=== PATIENT | female | born 1995 | race Two or more races ===

== ENCOUNTER 2025-03-22 00:12 | Emergency (ER) | payer MEDICAID, SELFPAY ==
[2025-03-22 00:14] VITALS: BMI 35.4
[2025-03-22 00:30] VITALS: BP 156/97; PULSE 86; RESP 20; TEMP 36.7; O2SAT 100
[2025-03-22 03:58] LABS: Collection Type, Urine Clean Catch
[2025-03-22 04:05] LABS: Bacteria,Urine 4+; Bilirubin,Urine Negative (Negative); Blood,Urine 2+ (Negative); Clarity,Urine Turbid (Clear/Hazy); Color,Urine Colorless (Lt Yel-Yel); Glucose, Urine Negative (Negative); Ketones,Urine Negative (Negative); Leukocyte Esterase,Urine Positive (Negative); Nitrite,Urine Negative (Negative); PH,Urine 6.5 (5.0-7.0); Protein,Urine Trace (Neg - Trace); RBC,Urine 10 /hpf (0-3); Specific Gravity,Urine 1.005 (1.001-1.035); Squamous Epithelial Cell,Urine 1 /hpf (0-5); Urobilinogen,Urine Negative mg/dL (0.0-1.0); WBC,Urine 98 /hpf (0-5)
[2025-03-22] MEDS: cefuroxime axetiL 250 MG TABLET 500 MG PO (04:21)
--- NOTE | 2025-03-22 05:52 | EDNOTE_ITS ---
<Statement entered by Winsome Zamora MD - 03/22/25 18:10> As co-signing physician, I was present and available for consult prn. I concur with the plan and care as documented by the midlevel provider. ED Female Urogenital RME/HPI General Chief complaint: Back Pain/Injury Stated complaint: R FLANK PAIN Time Seen by Provider: 03/22/25 00:54 Arrival date/time: 03/22/25 00:12 30F with history of HTN presents to ED 2 days of dysuria that is starting to radiates upwards to R flank. Patient denies N/V. Patient is currently , but denies vaginal bleeding. Limitations: no limitations Related Data Home Medications ?Medication ?Instructions ?Recorded ?Confirmed ferrous sulfate 325 mg (65 mg 325 mg PO BID 09/10/21 1 11/16/20 iron) tablet,delayed release Previous Rx's ?Medication ?Instructions ?Recorded hydrocodone 5 mg-acetaminophen 325 1 tab PO Q6H PRN pa in #20 tabs 01/25/24 mg tablet cefuroxime axetil 500 mg tablet 500 mg PO BID 7 days # 14 tabs 03/22/25 Allergies Allergy/AdvReac Type Severity Reaction Status Date / Time No Known Allergies Allergy Verified 03/22/25 00:19 Review of Systems Review of Systems Systems Reviewed: All systems reviewed, normal except as documented Constitutional Constitutional: Reports system reviewed and no additional complaints, except as documented, Denies fever(s) and Denies headache(s) ENT Ears, Nose, Mouth, and Throat: Denies disequilibrium and Denies headache(s) Cardiovascular Cardiovascular: Reports system reviewed and no additional complaints, except as documented, Denies chest pain and Denies dyspnea Respiratory Respiratory: Reports system reviewed and no additional complaints, except as documented, Denies cough and Denies dyspnea Gastrointestinal Gastrointestinal: Reports system reviewed and no additional complaints, except as documented, Denies abdominal pain, Denies nausea and Denies vomiting Genitourinary Genitourinary: Reports as per HPI, Reports dysuria and Reports flank pain Neurologic Neurologic: Reports system reviewed and no additional complaints, except as documented, Denies confusion, Denies disequilibrium and Denies headache(s) Psychiatric Psychiatric: Denies confusion Past Medical History Past Medical History NEUROLOGIC: Negative Neurological Disorders, Seizures, Epilepsy or Head Trauma CARDIAC: Positive Cardiac Disorders and Hypertension; Negative Congestive Heart Failure RESPIRATORY: Negative Chronic Obstructive Pulmonary Disease (COPD), Asthma or Sleep Apnea GASTROINTESTINAL: Negative Gastrointestinal Disorders GENITOURINARY: Negative Genitourinary Disorders or Renal Disease REPRODUCTIVE: Positive Previous Pregnancies; Negative Endometriosis or Pelvic Inflammatory Disease MUSCULOSKELETAL: Negative Musculoskeletal Disorders ENT: Negative Head Trauma ENDOCRINE: Negative Diabetes Mellitus Type 1 or Diabetes Mellitus Type 2 HEMATOLOGIC: Positive Anemia OTHER HISTORY: Positive Hospitalization; Negative Autoimmune Disease, Falls, Blood Transfusions, Anesthesia Reactions, Chicken Pox, Measles, Mumps or Cancer Family History FAMILY HISTORY: Positive Family Psychiatric Problems (SISTER SCHITZOPHRENIA) and Family Cardiac Disorders (FATHER HAS HTN); Negative Family Respiratory Disorders, Family Gastrointestinal Problems, Family Cancer, Family Surgery or Family Anesthesia Reaction Surgical History SURGICAL: Positive Section; Negative Endocrine Surgery, Ear Surgery, Abdominal Surgery, Nephrectomy or Joint Replacement Social History SMOKING STATUS: Never smoker SECOND HAND EXPOSURE: No ED Exam General Limitations: Present no limitations General appearance: Present alert and in no apparent distress Head Head exam: Present atraumatic Eye Eye exam: Present normal appearance, PERRL and EOMI ENT ENT exam: Present normal exam, normal oropharynx and mucous membranes moist Neck Neck exam: Present normal inspection, full ROM and trachea midline Chest Chest inspection: Present normal inspection and symmetric chest wall rise Respiratory Respiratory exam: Present normal lung sounds bilaterally Cardiovascular Cardiovascular exam: Present regular rate, normal rhythm and normal heart sounds Abdominal Exam Abdominal exam: Present soft and normal bowel sounds Extremities Exam Extremities exam: Present normal inspection and full ROM Back Exam Back exam: Present normal inspection and full ROM Neurological Exam Neurological exam: Present alert, oriented X3 and CN II-XII intact Psychiatric Psychiatric exam: Present normal affect and normal mood Skin Skin exam: Present warm, dry, intact and normal color Course Quality Measures none Orders Category Date Time Status Urinalysis Stat Lab 03/22/25 03:00 Completed Urine Culture Stat Lab 03/22/25 03:00 Received cefuroxime axetiL [cefUROXime axetil] Med 03/22/25 04:11 Discontinued 500 mg PO X1 ONE Vital Signs Vital signs: Vital Signs Temperature 98.1 F 03/22/25 00:30 Pulse Rate 86 03/22/25 00:30 Respiratory Rate 20 03/22/25 00:30 Blood Pressure 156/97 H 03/22/25 00:30 Pulse Oximetry (%) 100 03/22/25 00:30 Oxygen Delivery Method Room Air 03/22/25 00:30 O2 at 100% on RA and WNLs Urogenital - Female MDM Narrative MDM Narrative:: 30F with history of HTN presents to ED 2 days of dysuria that is starting to radiates upwards to R flank. Patient denies N/V. Patient is currently , but denies vaginal bleeding. Physical exam reveals no flank tenderness. Patient is afebrile, calm, and alert. UA suggests UTI. Patient data External records reviewed:: [facility] previous records Clinical information provided by:: patient Social determinants that could affect healthcare access:: none Patient has the following chronic illnesses:: HTN How is presenting disease/condition affected by chronic disease/condition?: no chronic disease Evaluation data The following diagnostics were reviewed and interpreted by me:: lab results Lab and/or radiology exams considered but not ordered:: ordered Interpretation Summary: above Medications / Prescriptions Medications or Prescriptions considered but not ordered:: ordered Medication administrations:: Medication Administration History Discontinued Medications Cefuroxime Axetil (Cefuroxime Axetil 250 Mg Tablet) 500 mg PO X1 ONE Stop: 03/22/25 04:12 Last Admin: 03/22/25 04:21 Dose: 500 mg Documented By: FLOWER above Consultations Consultation(s) initiated? (list below): No Diagnosis Urogenital Female Differential Diagnosis: urinary tract infection, bacterial vaginosis, trichomoniasis, cervicitis, ovarian cyst, vaginitis, ruptured ovarian cyst, cyst of Bartholin's gland, cystitis and dysmenorrhea Most likely diagnosis given after review of the tests above:: UTI Admission Indicated Admission indicated?: not indicated Admission Request Was there a request for admission?: No Disposition Plan Disposition Plan: Discharge Discharge Attestation Discharge Attestation: The patient and all family members were given an opportunity to ask questions and understood the discharge instructions. Discharge instructions specifically effects, indications for sooner follow up or return to the emergency department, and the expected course of current diagnosis. Patient condition: Stable Discharge Plan Plan Patient Disposition: HOME (Self Care) Discharge Disposition comment: Stable Prescriptions/Referrals Prescriptions/Med Rec: New cefuroxime axetil 500 mg tablet 500 mg PO BID 7 Days Qty: 14 0RF No Action ferrous sulfate 325 mg (65 mg iron) tablet,delayed release (DR/EC) 325 mg PO BID hydrocodone-acetaminophen 5-325 mg tablet 1 tab PO Q6H MDD 4 PRN (Reason: pain) Qty: 20 0RF Referrals: Sunni Byrd PA-C [Primary Care Provider] - In 1 week Problem List Clinical Impression: UTI (urinary tract infection) Patient/Caregiver Discharge Instructions Education Materials: ED CYSTITIS Female Adult Additional Instructions: Please follow-up with PCP within 24-48 hours and return immediately if symptoms worsen. Print Language: Korean Stand Alone Forms: Patient Portal Info Letter PA/RUBIO Supervising Physician NAOMIE/RUBIO Supervising Physician: Dr. Zamora
== END 2025-03-22 04:24 | disposition home or self-care (01) ==
PROVIDERS: Physician Assistant; Emergency Provider Emergency Medicine; PCP Physician Assistant
DX: O23.40 Unspecified infection of urinary tract in pregnancy, unspecified trimester (principal); Z3A.00 Weeks of gestation of pregnancy not specified; N39.0 Urinary tract infection, site not specified; O16.9 Unspecified maternal hypertension, unspecified trimester
CPT/HCPCS: 81001; 87077; 87086; 87186; 99283; A9270

== ENCOUNTER 2025-06-30 10:22 | Inpatient (IN) | payer MEDICAID, SELFPAY ==
[2025-06-30] VITALS (15 sets, daily range): BP systolic 128–149; BP diastolic 68–104; PULSE 61–97; RESP 12–20; TEMP 36.4–36.7; O2SAT 97–99; BMI 36.9
--- NOTE | 2025-06-30 08:12 | ESHP_ITS ---
RE: NATHANIEL CISNEROS : 1995 DATE OF ADMISSION: 06/30/2025 HISTORY OF PRESENT ILLNESS: This is a 30-year-old 6, para 2-0-2-2 with due date of 07/14 with intrauterine at 38 weeks' gestation and 0 days who presents for repeat delivery. Her care was complicated by chronic hypertension for which she takes labetalol. She denies any leaking or bleeding. She reports normal movement. ALLERGIES: NO KNOWN DRUG ALLERGIES. MEDICATIONS: 1. multivitamin 1 p.o. daily. 2. Ferrous sulfate 325 mg 1 p.o. daily. 3. Labetalol 200 mg 1 p.o. b.i.d. 4. Aspirin 81 mg 1 p.o. daily. PAST MEDICAL HISTORY: Preeclampsia with severe features, latent tuberculosis infection, chronic hypertension, ectopic , iron deficiency anemia, high cholesterol. SOCIAL HISTORY: She denies any alcohol drug use or smoking. FAMILY HISTORY: Father has diabetes and hypertension. OBSTETRIC HISTORY: 2013, 34 weeks delivery, 4-pound male complicated by preeclampsia with severe features. 2018, 6 weeks spontaneous AB, no D and C. 2019, 7 weeks spontaneous AB, no D and C. 2021, 40 weeks delivery, 6 pound 10-ounce female. No complications. 01/2024, ectopic with right salpingectomy. PAST SURGICAL HISTORY: 01/2024, diagnostic laparoscopy, right salpingectomy. REVIEW OF SYSTEMS: She denies any chest pain, palpitations, cough, fever, shortness of breath, or lower extremity pain. PHYSICAL EXAMINATION: VITAL SIGNS: Blood pressure 143/94, heart rate 88, respirations 18, temperature 98.6. HEENT: Oropharynx and sclerae are clear. LUNGS: Clear to auscultation bilaterally. HEART: Regular rate and rhythm. ABDOMEN: Abdomen is gravid term size. Old Pfannenstiel scar noted. EXTREMITIES: Nontender. SKIN: No gross rashes or lesion. NEUROLOGIC: No focal deficit. ASSESSMENT AND PLAN: Intrauterine at 38 weeks' gestation and 0 days on 06/30. Chronic hypertension. Previous delivery. Elects repeat delivery. PLAN: Repeat delivery. Informed consent was obtained. The patient was made aware of the risks, complications, alternatives, and benefits of the proposed procedure and she agrees. DT: 06:36:04 TT: 07:02:00 Ref: [id number] - TID: [id number]
[2025-06-30] MEDS: RINGERS LACTATED 1000 ML 1,000 ML 100 ML IV (11:15)
[2025-06-30 11:36] LABS: Basophils # (Auto) 0.0 Thou/mm3 (0.0-0.2); Basophils % (Auto) 1 % (0-2.5); Eosinophils # (Auto) 0.3 Thou/mm3 (0.0-0.5); Eosinophils % (Auto) 3 % (0-10); Hematocrit 32.2 % (36.0-46.0); Hemoglobin 10.8 g/dL (12.0-16.0); Immature Granulocytes Auto 0.03 Thou/mm3 (0.00-0.00); Lymphocytes # (Auto) 1.9 Thou/mm3 (1.0-4.8); Lymphocytes % (Auto) 23 % (10-50); Mean Corpuscular HGB Conc 33.5 g/dl (31.0-37.0); Mean Corpuscular Hemoglobin 28.6 pg (25.0-35.0); Mean Corpuscular Volume 85 fL (80-100); Monocytes # (Auto) 0.5 Thou/mm3 (0.0-0.8); Monocytes % (Auto) 6 % (0-12); Neutrophils # (Auto) 5.5 Thou/mm3 (1.8-7.7); Neutrophils % (Auto) 67 % (37-80); Nucleated Red Blood Cell # 0.00 Thou/mm3 (0.00-0.00); Nucleated Red Blood Cell % 0 /100 WBC (0); Platelet Count 200 Thou/mm3 (140-440); RDW Standard Deviation 46.1 fL (36.4-46.3); Red Blood Count 3.77 Miln/mm3 (4.00-5.20); White Blood Count 8.2 Thou/mm3 (3.6-11.0)
[2025-06-30 12:13] LABS: Syphilis Nonreactive (Nonreactive)
[2025-06-30] MEDS: FAMOTIDINE INJ 10 MG/ML VIAL 2 ML 20 MG IV (12:15)
[2025-06-30] MEDS: ceFAZolin/D5W 2 GM IV 2 GM/100 ML BAG IV (12:15)
--- NOTE | 2025-06-30 12:35 | PD.GYNPROC ---
Operative Note - COMPENSATION SUPERVISOR Procedure Date of procedure: 06/30/25 Procedure Performed: Repeat Low Transverse C/S via Pfannesteil skin incision Indication: Viable IUP 38w0d Chronic Hypertension Prior C/S Elects Repeat C/S Pre-Op diagnosis: Viable IUP 38w0d Chronic Hypertension Prior C/S Elects Repeat C/S Post-Op diagnosis: Viable IUP 38w0d Chronic Hypertension Prior C/S Elects Repeat C/S Anesthesia type: Epidural Procedure description: After proper informed consent was obtained and the patient was made aware of the risks, complications, alternatives and benefits of the proposed procedure she was taken to the operating room where she underwent induction of spinal anesthesia. She was prepped and draped in the usual sterile fashion. A timeout was performed.? A Pfannenstiel skin incision was made with the scalpel and carried through to the underlying layer of fascia with the Bovie. The fascia was nicked in the midline incision and the incision was extended bilaterally with the Bovie. The inferior aspect of the fascial incision was grasped with Mahad clamps elevated and the underlying rectus muscle dissected off with the Bovie. The superior aspect the fascial incision was grasped with Mahad clamps elevated and the underlying rectus muscle dissected off with the Bovie. The rectus muscles were in the midline. The peritoneum was grasped between 2 Scherer clamps and entered sharply with the Metzenbaum scissors. The peritoneum was extended superiorly and inferiorly with good visualization of the bladder. The vesicouterine peritoneum was incised transversely and the bladder flap created digitally. A Nerissa blade was inserted. A low transverse incision was made in the uterus with a scapel and the incision was extended digitally. The 's head delivered and the mouth and nose were suctioned with the bulb suction. The shoulder and body delivered atraumatically. The cord was clamped after 30 second delayed cord clamping and the cord was cut.? The infant was handed off to the waiting Pediatric staff, cord blood was collected for lab testing. The placenta was removed complete and intact. The uterus was exteriorized and cleared of all clots and debris. The uterine incision was closed with #1-0 chromic catgut suture in a running interlocking fashion. A second layer of the same suture was used to imbricate the first layer and obtain excellent hemostasis. The vesicouterine peritoneum was closed with 2-0 chromic catgut suture in a running fashion. The firm uterus was returned to the abdomen. The gutters were cleared of all clots and debris. The peritoneum was closed with 0 chromic catgut suture in running fashion. The rectus muscle was closed with 0 chromic catgut suture. The fascia was closed with 0 Vicryl beginning at each angle and ending in the center in a running fashion. The subcutaneous tissue was irrigated with warmed normal saline solution and found to be hemostatic. The subcutaneous tissue was closed with 2-0 chromic catgut suture in a running fashion. The skin was closed with 4-0 Monocryl. A Dermabond Prineo dressing was applied and a sterile pressure dressing was applied.? She tolerated the procedure well. Counts were correct. I discussed with the patient the nature of her condition, intraoperative findings and expectation for recovery all? questions answered. Specimen: none Estimated blood loss (ml): 500 Findings: Live male infant APGARS 9 and 9 Aminotic fluid clear Cephalic Weight 7'4 Placenta removed complete and intact Uterus, ovaries and tubes wnl. Complications: none Surgical staff Yonatan Wilkerson, Surgeon Operation Date: 06/30/25 12:45 <No data on this case meets the specified criteria> Diagnosis Problem List Completed Was Problem List Reviewed/Reconciled?: Yes
[2025-06-30 12:36] LABS: Fibrinogen 576 mg/dL (175-375); INR 0.9 (0.9-1.3); Partial Thromboplastin Time 28.2 Seconds (22.0-36.0); Prothrombin Time 9.9 Seconds (9.0-12.2)
[2025-06-30 12:40] LABS: Alanine Aminotransferase < 7 U/L (10-49); Albumin, Serum 3.7 gm/dL (3.5-5.0); Albumin/Globulin Ratio 1.5 (1.2-2.2); Alkaline Phosphatase 99 U/L (46-116); Anion Gap 8 (7-16); Aspartate Amino Transferase 13 U/L (0-34); BUN/Creatinine Ratio 16 Ratio (12-20); Bilirubin,Total 0.4 mg/dL (0.3-1.2); Blood Urea Nitrogen 8 mg/dL (9-23); Calcium 8.5 mg/dL (8.3-10.6); Calcium (Corrected) 8.7 mg/dL (8.5-10.1); Carbon Dioxide 20.4 mMol/L (20.0-31.0); Chloride 109 mMol/L (98-107); Creatinine (Component) 0.5 mg/dL (0.6-1.3); Estimated Creatinine Clearance 173.3 mL/min (>60); Globulin 2.5 gm/dL (2.3-3.5); Glucose 92 mg/dL (74-106); Osmolality,Calculated 272 (275-295); Potassium 3.9 mMol/L (3.4-5.1); Sodium 137 mMol/L (136-145); Total Protein 6.2 gm/dL (5.7-8.2); Uric Acid 3.0 mg/dL (3.1-7.8); eGFR > 60 See Note
[2025-06-30] MEDS: MORPHINE SULF INJ 4 MG/ML VIAL 2 MG IVP (14:50)
[2025-06-30] MEDS: OXYTOCIN in NS 20 units 20 UNIT/1,000 ML BAG 125 UNIT IV (17:07)
[2025-06-30 18:29] LABS: Basophils # (Auto) 0.0 Thou/mm3 (0.0-0.2); Basophils % (Auto) 0 % (0-2.5); Eosinophils # (Auto) 0.0 Thou/mm3 (0.0-0.5); Eosinophils % (Auto) 0 % (0-10); Hematocrit 31.1 % (36.0-46.0); Hemoglobin 10.4 g/dL (12.0-16.0); Immature Granulocytes Auto 0.05 Thou/mm3 (0.00-0.00); Lymphocytes # (Auto) 0.9 Thou/mm3 (1.0-4.8); Lymphocytes % (Auto) 6 % (10-50); Mean Corpuscular HGB Conc 33.4 g/dl (31.0-37.0); Mean Corpuscular Hemoglobin 28.8 pg (25.0-35.0); Mean Corpuscular Volume 86 fL (80-100); Monocytes # (Auto) 0.1 Thou/mm3 (0.0-0.8); Monocytes % (Auto) 1 % (0-12); Neutrophils # (Auto) 14.1 Thou/mm3 (1.8-7.7); Neutrophils % (Auto) 93 % (37-80); Nucleated Red Blood Cell # 0.00 Thou/mm3 (0.00-0.00); Nucleated Red Blood Cell % 0 /100 WBC (0); Platelet Count 188 Thou/mm3 (140-440); RDW Standard Deviation 46.4 fL (36.4-46.3); Red Blood Count 3.61 Miln/mm3 (4.00-5.20); White Blood Count 15.2 Thou/mm3 (3.6-11.0)
[2025-07-01] MEDS: KETOROLAC INJ 30 MG/ML VIAL IVP (00:22)
[2025-07-01 00:29] VITALS: BP 153/97; PULSE 74; RESP 16; TEMP 36.6; O2SAT 97
[2025-07-01 04:26] VITALS: BP 146/89; PULSE 73; RESP 14; TEMP 36.6; O2SAT 96
--- NOTE | 2025-07-01 06:44 | ESPR_ITS ---
RE: NATHANIEL CISNEROS : 1995 DATE OF SERVICE: 07/01/2025 S: Postop day #1. The patient denies any problem or complaints. She is voiding. She is ambulating. She tolerated diet. She is passing flatus. She denies any excessive vaginal bleeding. She denies any dizziness or lightheadedness. She denies any chest pain, palpitations, shortness of breath or lower extremity pain. O: Vital Signs: Blood pressure is 146/89, heart rate 73, respirations 14, temperature 97.9, pulse oximetry 96% on room air. Lungs: Clear to auscultation bilaterally. Heart: Regular rate and rhythm. Abdomen: Dressing dry and intact. Fundus is firm. Extremities: Nontender. LABORATORY DATA: Hemoglobin pre-delivery is 10.8, post-delivery is 10.4. ASSESSMENT: 1. Postoperative day #1 status post delivery. 2. Chronic hypertension. P: Continue labetalol, DC IV, remove dressing, encourage ambulation, support, possible discharge home tomorrow. DT: 06:37:47 TT: 06:44:00 Ref: [id number] - TID: [id number]
[2025-07-01 07:40] VITALS: BP 137/89; PULSE 87; RESP 16; TEMP 37.2; O2SAT 98
[2025-07-01] MEDS: ENOXAPARIN SOD INJ 40 MG/0.4 ML SYRINGE SC (08:34)
[2025-07-01] MEDS: DOCUSATE SOD 100 MG CAPSULE PO (08:34)
[2025-07-01] MEDS: SIMETHICONE 80 MG CHEW PO ×3 (08:37→19:25)
[2025-07-01 11:50] VITALS: BP 135/88; PULSE 81; RESP 18; TEMP 37.1; O2SAT 97
--- NOTE | 2025-07-01 12:30 | PD.LDDELS ---
Data ([place]) Data Hx Section: Yes : 6 Delivery Data (Byrnes) Labor Data Induction/Augmentation Agent: None ROM date: 06/30/25 ROM time: 12:50 Amniotic membrane rupture type: Artificial Amniotic fluid description: Clear Delivery Data EDC: 07/14/25 EDC calculated by:: LMP/early US confirmation delivery date: 06/30/25 [place] delivery time: 12:52 Gestational age (weeks): 38 Gestational age (days): 0 Placenta delivery date: 06/30/25 Placenta delivery time: 12:52 Delivered by: Rm Wilkerson Delivery nurse: Alejo Huynh RN [place] nurse: Toni ROBERTSON RN & Alejo Dillon RN Coal Inspector at delivery: No Support person(s) at delivery: fob Delivery Method Delivery method: Low Transverse Presentation: Vertex position: OA Anesthesia Type Anesthesia Type: Spinal Anesthesia type: Epidural Placenta Placenta delivery description: Manual Removal Cord blood sent to lab: Yes cord blood collection: Cord Blood Type Episiotomy Episiotomy description: None EBL Estimated blood loss (ml): 500 Umbilical Cord cord description: 3 Vessels Additional Procedures MityVac Vacuum assisted delivery: 1st attempt: no pop offs: 3 cm forward of the posterior fontonelle over the saggital suture. Complications Complications: None Data ([place]nes) [place] Data order: 1 [place]'s gender: Male Identification band number: [id number] weight (gms): 7 lb 0.877 oz Weight (pounds): 7 lbs and 0.9 ozs length: 20.5 in 1 minute: 9 5 minutes: 9
[2025-07-01] MEDS: HYDROcodone/APAP 5/325 TABLET 1 TAB PO (19:24)
[2025-07-01 19:54] VITALS: BP 132/86; PULSE 91; RESP 17; TEMP 36.7; O2SAT 97
[2025-07-02 03:33] VITALS: BP 147/82; PULSE 93; RESP 18; TEMP 36.8; O2SAT 97
[2025-07-02] MEDS: HYDROcodone/APAP 5/325 TABLET 2 TAB PO (04:03)
[2025-07-02] MEDS: HYDROcodone/APAP 5/325 TABLET 1 TAB PO (08:24)
[2025-07-02] MEDS: DOCUSATE SOD 100 MG CAPSULE PO (08:24)
[2025-07-02 08:47] VITALS: BP 146/93; PULSE 92; RESP 20; TEMP 36.7; O2SAT 97
[2025-07-02 09:00] VITALS: BP 146/93; PULSE 92
[2025-07-02] MEDS: ENOXAPARIN SOD INJ 40 MG/0.4 ML SYRINGE SC (09:00)
[2025-07-02] MEDS: LABETALOL 100 MG TABLET 200 MG PO (09:00)
--- NOTE | 2025-07-02 09:35 | ESPR_ITS ---
RE: NATHANIEL CISNEROS : 1995 DATE OF SERVICE: 07/02/2025 S: Post OP day #2, the patient denies any problem or complaint. She is voiding, ambulating, tolerating regular diet, passing flatus. She denies any excessive vaginal bleeding. She denies any dizziness or lightheadedness. She denies any chest pain, palpitations, shortness of breath or lower extremity pain. O: Vital Signs: Blood pressure is 147/82, heart rate 93, respirations 18, temperature 98.2, pulse oximetry is 97% on room air. Lungs: Clear to auscultation bilaterally. Heart: Regular rate and rhythm. Abdomen: Incision clear and intact. Fundus is firm. Extremities: Nontender. ASSESSMENT: Post OP day #2, status post delivery. Chronic hypertension, on labetalol. P: Continue labetalol on discharge. Follow up in the office in 1 week. Discharge instructions given. DT: 05:52:17 TT: 06:44:00 Ref: [id number] - TID: [id number] [facility]
[2025-07-02 13:56] VITALS: BP 145/90; PULSE 94; RESP 20; TEMP 36.8; O2SAT 98
== END 2025-07-02 14:15 | disposition home or self-care (01) | DRG 540 ==
LOC: S4SX 12:26 → S4NX 12:32
PROVIDERS: Admitting Provider Specialist; Visit Provider Specialist
PROC: 10D00Z1 Extraction of Products of Conception, Low, Open Approach (ICD-10-PCS; CPT 59514; principal; 2025-06-30 12:30)
DX: O34.211 Maternal care for low transverse scar from previous cesarean delivery (principal); Z37.0 Single live birth; Z3A.38 38 weeks gestation of pregnancy; O10.92 Unspecified pre-existing hypertension complicating childbirth
CPT/HCPCS: 36415; 80053; 81001; 84550; 85025; 85384; 85610; 85730; 86780; 86850; 86900; 86901; A4217; A4314; A4649; J0689; J1100; J1650; J1885; J2250; J2270; J2371; J2405; J2590; J3010; J3490; J7120; A9270